=== PATIENT | female | born 1985 | race Caucasian/White ===

== ENCOUNTER 2019-11-16 11:40 | Day surgery (SDC) | payer MEDICAID ==
[~2019-11-16] VITALS: Ht 162.6 cm; Wt 136.4 kg
[2019-11-16 12:06] LABS: HEMATOCRIT 40.6 % (36.0-48.0); MCH 27.9 pg (26.0-34.0); MCV 87.1 fL (80.0-100.0); MEAN PLATELET VOLUME 10.2 fL (7.4-10.4); RBC 4.66 10x6/uL (4.00-5.40); RDW 13.4 % (11.5-14.5); WBC 6.7 10x3/uL (4.8-10.8)
[2019-11-16 12:22] LABS: CALC OSMOLALITY 271 mosm/kg (275-300); CARBON DIOXIDE 32.4 mmol/L (21.0-32.0); CHLORIDE - SERUM 101 mmol/L (98-107); CREATININE - SERUM 0.9 mg/dL (0.6-1.3); GLUCOSE 105 mg/dL (74-106); POTASSIUM - SERUM 4.2 mmol/L (3.5-5.1); SODIUM 135 mmol/L (136-145); UREA NITROGEN 17 mg/dL (7-18); eGFR NON AFRICAN AMERICAN 75 mL/min (90-120)
[2019-11-16] MEDS ORDERED: LISINOPRIL10 MG PO (12:58)
[2019-11-16] MEDS ORDERED: ZYRTEC10 MG PO (12:59)
[2019-11-16] MEDS ORDERED: GLUCOPHAGE500 MG PO (12:59)
[2019-11-16] MEDS ORDERED: OMEPRAZOLE40 MG PO (12:59)
[2019-11-16] MEDS ORDERED: FERROUS SULFAT325 MG PO (12:59)
[2019-11-16] MEDS ORDERED: IBUPROFEN200 MG PO (13:00)
[2019-11-16 13:36] VITALS: Ht 162.6 cm; Wt 136.4 kg
[2019-11-16 13:37] LABS: HCG SERUM NEGATIVE (NEGATIVE)
--- NOTE | 2019-11-17 07:03 | OP ---
PATIENT NAME: PRICILA HEATH MEDICAL RECORD: [id number] LOCATION:[place] ADMISSION DATE: SURGEON: ZEINAB VASQUEZ DO DATE OF OPERATION: 11/16/2019 PROCEDURE: EGD with biopsies. INDICATIONS FOR PROCEDURE: Heartburn, epigastric pain, nausea, and vomiting. SCOPE: Olympus video gastroscope. MEDICATIONS: Propofol 300 mg IV per anesthesia. ESTIMATED BLOOD LOSS: Minimal. COMPLICATIONS: None. FINDINGS: Informed consent was given. The patient was made comfortable with the above medication. After reaching an adequate level of sedation by slow IV push, the patient was placed on her left side. The endoscope was advanced under direct visualization through the mouth to the second portion of the duodenum with ease. The entire esophagus appeared normal down to the GE junction. At the GE junction, there were minor changes consistent with LA class A reflux-induced esophagitis. The endoscope was advanced beyond the GE junction into the stomach and retroflexed to view the cardia and fundus. There was a small sliding hiatal hernia. There were a few benign appearing fundic gland type polyps in the fundus and body of the stomach. A single cold forceps biopsy was taken to submit for histopathology to confirm the benign nature. The body and antrum of the stomach appeared normal. Cold forceps, biopsies were taken from the antrum and incisura to submit for histopathology and to rule out the presence of H. pylori. The endoscope was advanced beyond the pylorus into the duodenum, which appeared normal to the second portion. Cold forceps biopsies were randomly taken to submit for histopathology. The endoscope was withdrawn from the patient. The patient tolerated the procedure well and there were no complications. IMPRESSION: 1. LA class A reflux-induced esophagitis. 2. Small sliding hiatal hernia. 3. Few scattered benign fundic gland polyps located in the fundus and body of the stomach. PLAN AND RECOMMENDATIONS: 1. Discharge home when recovery parameters are met. 2. Follow up biopsy specimen results. 3. GERD diet and reflux precautions. 4. Continue omeprazole 40 mg in the morning. 5. Add Pepcid 20 mg in the evening. 6. Right upper quadrant ultrasound and a gastric emptying scan will be ordered regarding the patient's nausea, vomiting, and upper abdominal pain. 7. Consider a PIPIDA scan if the above studies are normal and symptoms continue. 8. Consider esophageal manometry and pH study with an LPRD probe if continued coughing, which is felt to be related to reflux. 9. Follow up in GI clinic in 4-6 weeks. OPERATIVE REPORT [id number] PRICILA HEATH TRANSINT:[id number] Voice Confirmation ID: [id number] DOCUMENT ID: [id number] ZEINAB VASQUEZ DO at 0703 CC: [id number] DICTATION DATE: 11/16/19 1431 [facility] OPERATOR: 11/17/19 0018 [facility] 11/16/19 [id number] [place] [address]
== END 2019-11-16 15:10 | disposition home or self-care (01) ==
LOC: D.OPS 11:40
PROVIDERS: Anesthesiology; ATTEND Internal Medicine Gastroenterology
DX: R10.13 Epigastric pain (principal); R11.2 Nausea with vomiting, unspecified; E11.9 Type 2 diabetes mellitus without complications; Z79.84 Long term (current) use of oral hypoglycemic drugs

== ENCOUNTER → 2019-11-18 10:09 | Outpatient (CLI) | payer MEDICAID ==
[2019-11-16 13:36] VITALS: BMI 51.6
[~2019-11-18 10:09] MED LIST: FERROUS SULFAT325 MG PO; GLUCOPHAGE500 MG PO; IBUPROFEN200 MG PO; LISINOPRIL10 MG PO; OMEPRAZOLE40 MG PO; ZYRTEC10 MG PO
== END | disposition home or self-care (01) ==
LOC: D.US 11-17 10:00
PROVIDERS: ATTEND Internal Medicine Gastroenterology
DX: R11.2 Nausea with vomiting, unspecified (principal); R10.9 Unspecified abdominal pain

== ENCOUNTER 2020-10-12 15:38 | Emergency (ER) | payer BC ==
[~2020-10-12] VITALS: Ht 162.6 cm; Wt 138.6 kg
[2020-10-12 15:42] VITALS: Ht 162.6 cm; Wt 138.6 kg
[2020-10-12] MEDS ORDERED: COZAAR25 MG PO (15:44)
[2020-10-12] MEDS ORDERED: PEPCID AC20 MG PO (15:45)
[2020-10-12 16:18] LABS: BASOPHILS 0.2 % (0-2); EOSINOPHILS 0.4 % (0-7); HEMATOCRIT 41.7 % (36.0-48.0); HEMOGLOBIN 13.6 g/dL (12-16); LYMPHOCYTES 4.3 % (15-50); MCH 26.5 pg (26.0-34.0); MCHC 32.6 g/dL (31.0-37.0); MCV 81.3 fL (80.0-100.0); MEAN PLATELET VOLUME 9.3 fL (7.4-10.4); MONOCYTES 6.7 % (2-11); NEUTROPHILS 88.4 % (40-80); PLATELET COUNT 221 10x3/uL (130-400); RBC 5.13 10x6/uL (4.00-5.40); RDW 15.4 % (11.5-14.5); WBC 8.2 10x3/uL (4.8-10.8)
[2020-10-12 16:20] VITALS: BP 128/66
[2020-10-12 16:32] LABS: CALC OSMOLALITY 278 mosm/kg (275-300); CALCIUM 8.5 mg/dL (8.5-10.1); CARBON DIOXIDE 28.3 mmol/L (21.0-32.0); CHLORIDE - SERUM 100 mmol/L (98-107); CREATININE - SERUM 0.9 mg/dL (0.6-1.3); GLUCOSE 142 mg/dL (74-106); POTASSIUM - SERUM 3.8 mmol/L (3.5-5.1); SODIUM 138 mmol/L (136-145); UREA NITROGEN 15 mg/dL (7-18); eGFR NON AFRICAN AMERICAN 75 mL/min (90-120)
[2020-10-12 16:38] LABS: ALBUMIN 3.5 g/dL (3.4-5.0); ALKALINE PHOSPHATASE 56 U/L (30-120); ALT (SGPT) 46 U/L (10-68); BILIRUBIN - TOTAL 0.56 mg/dL (0.2-1.3); PROTEIN - SERUM 7.5 g/dL (6.4-8.2)
[2020-10-12 16:40] LABS: BILIRUBIN NEGATIVE (NEGATIVE); KETONE SMALL mg/dL (NEGATIVE); NITRITE NEGATIVE (NEGATIVE); UROBILINOGEN NORMAL mg/dL (< 2)
[2020-10-12 16:42] LABS: SQUAMOUS EPITHELIAL 0-5 HPF (0-4); WHITE CELLS - URINE 0-5 HPF (0-4)
[2020-10-12 16:43] LABS: BACTERIA FEW HPF (NONE SEEN)
[2020-10-12] MEDS ORDERED: ZOFRAN ODT4 MG/UDTAB PO (17:27)
== END 2020-10-12 18:01 | disposition home or self-care (01) ==
LOC: D.ER 15:38
PROVIDERS: Emergency Medicine
DX: K52.9 Noninfective gastroenteritis and colitis, unspecified (principal); R10.9 Unspecified abdominal pain; I10 Essential (primary) hypertension; K21.9 Gastro-esophageal reflux disease without esophagitis